=== PATIENT | male | born 1970 ===

== ENCOUNTER 2021-06-24 07:40 | Outpatient (RCR) | payer OTHER, SELFPAY ==
[2021-06-24] MEDS: ACETAMINOPHEN 325 MG TABLET 650 MG PO (08:14)
[2021-06-24] MEDS: diphenhydrAMINE HCl CAP 25 MG CAPSULE PO (08:15)
[2021-06-24] MEDS: FAMOTIDINE 20 MG TABLET PO (08:15)
[2021-06-24 08:19] VITALS: BP 126/69; PULSE 78; RESP 20; TEMP 36.9; O2SAT 99
[2021-06-24 09:55] VITALS: BP 126/77
== END 2021-06-24 16:30 | disposition home or self-care (01) ==
LOC: AMCINF 07:40
PROVIDERS: PCP Nurse Practitioner; Referring Provider Nurse Practitioner; Visit Provider Internal Medicine Hematology & Oncology
DX: Z23 Encounter for immunization (principal); U07.1 COVID-19
CPT/HCPCS: A9270; J7050; M0243